=== PATIENT | female | born 1965 | race Caucasian/White ===

== ENCOUNTER 2020-07-25 10:46 | Emergency (ER) | payer MEDICAID ==
[~2020-07-25] VITALS: Ht 170.2 cm; Wt 97.5 kg
[2020-07-25 10:46] VITALS: BP_SYST 128
[2020-07-25 11:24] VITALS: BP_SYST 128
== END 2020-07-25 11:26 | disposition home or self-care (01) ==
LOC: SED 10:46
DX: J32.9 Chronic sinusitis, unspecified (principal); H61.22 Impacted cerumen, left ear
CPT/HCPCS: 99283

== ENCOUNTER 2020-11-19 11:31 | Emergency (ER) | payer MEDICAID ==
[~2020-11-19] VITALS: Ht 170.2 cm; Wt 94.3 kg
[2020-11-19 11:49] VITALS: BP_SYST 128
[2020-11-19] MEDS ORDERED: CARB15DR93 EACH EAR (12:13)
[2020-11-19] MEDS ORDERED: AMOX-426 PO (12:13)
[2020-11-19] MEDS ORDERED: PSEU30TA36 PO (12:13)
[2020-11-19 12:21] VITALS: BP_SYST 128
== END 2020-11-19 12:21 | disposition home or self-care (01) ==
LOC: SED 11:31
DX: H61.22 Impacted cerumen, left ear (principal); J32.9 Chronic sinusitis, unspecified
CPT/HCPCS: 99283